=== PATIENT | female | born 1955 | race Caucasian/White ===

== ENCOUNTER 2020-03-02 15:38 | Inpatient (IN) ==
[2020-03-02] MEDS ORDERED: ALBUTEROL/IPRATROPIUM 3 ML NEB RESP TX STA (16:10)
[2020-03-02] MEDS ORDERED: methylPREDNISolone SOD SUC 125 MG/2 ML VIAL IV STA (16:11)
[2020-03-02] MEDS ORDERED: FUROSEMIDE 40 MG/4 ML VIAL IV STA (16:23)
[2020-03-02] MEDS ORDERED: ALBUTEROL 2.5 MG/3 ML NEB RESP TX PRN (16:34)
[2020-03-02] MEDS ORDERED: carvediloL 3.125 MG TABLET PO STA (17:04)
[2020-03-02] MEDS ORDERED: SIMETHICONE CHEW 125 MG TABLET PO PRN (17:11)
[2020-03-02] MEDS ORDERED: ZALEPLON 5 MG CAPSULE PO PRN (17:11)
[2020-03-02] MEDS ORDERED: guaiFENesin/DM ER 600-30 MG TABLET PO PRN (17:11)
[2020-03-02] MEDS ORDERED: LACTULOSE 20 GM/30 ML UDCUP PO PRN (17:11)
[2020-03-02] MEDS ORDERED: ALUMINUM/MAGNES/SIMETH MAX STR 30 ML UDCUP PO PRN (17:11)
[2020-03-02] MEDS ORDERED: ACETAMINOPHEN 325 MG TABLET PO PRN (17:11)
[2020-03-02] MEDS ORDERED: GLUCAGON 1 MG VIAL IM PRN (17:11)
[2020-03-02] MEDS ORDERED: ONDANSETRON 4 MG/2 ML VIAL IV PRN (17:11)
[2020-03-02] MEDS ORDERED: CALCIUM CARBONATE CHEW 500 MG TABLET PO PRN (17:11)
[2020-03-02] MEDS ORDERED: MORPHINE 4 MG/1 ML VIAL IV PRN (17:11)
[2020-03-02] MEDS ORDERED: BISACODYL 5 MG TABLET PO PRN (17:11)
[2020-03-02] MEDS ORDERED: hydrALAZINE 20 MG/1 ML VIAL IV PRN (17:11)
[2020-03-02] MEDS ORDERED: DEXTROSE 50% 25 GM/50 ML VIAL IV PRN (17:11)
[2020-03-02] MEDS ORDERED: DOCUSATE SODIUM 100 MG CAPSULE PO PRN (17:11)
[2020-03-02 17:26] LABS: Albumin 2.8 G/DL (3.4-5.0); Bilirubin,Total 0.4 MG/DL (0.2-1.0); Calcium 8.6 MG/DL (8.5-10.1); Osmolality,Calculated 278.8 MOS/KG (273-304); Total Protein 6.7 G/DL (6.4-8.3)
[2020-03-02] MEDS ORDERED: FUROSEMIDE 40 MG/4 ML VIAL IV ONE (17:49)
[2020-03-02] MEDS: methylPREDNISolone SOD SUC 40 MG/1 ML VIAL IV SCH (17:59)
[2020-03-02] MEDS: AZITHROMYCIN INJ 500 MG in SODIUM CHLORIDE 0.9% 250 ML IV SCH (18:13)
[2020-03-02 19:16] LABS: Hematocrit 41.2 VOL% (35.7-47.0); Hemoglobin 13.3 GM/DL (12.0-16.0); Immature Granulocytes % 0.6 %; Immature Granulocytes Absolute 0.03 #; Lymphocytes # 0.4 10*3/uL (1.4-4.0); Lymphocytes % 6.9 % (21.3-54.2); Mean Corpuscular HGB Conc 32.3 GM/DL (32-36); Mean Corpuscular Volume 97.6 FL (87-102); Mean Platelet Volume 9.5 FL (9.6-12.0); Monocytes % 4.8 % (1.7-12.7); Neutrophils % 87.7 % (38.7-73.9); Platelet Count 232 T/CUMM (130-400); Red Blood Count 4.22 MC/CUMM (3.8-5.5); Red Cell Distribution Width 13.7 % (9.3-17.3); White Blood Count 5.1 T/CUMM (4-12)
[2020-03-02] MEDS: ALBUTEROL/IPRATROPIUM 3 ML NEB RESP TX SCH (20:23)
[2020-03-02] MEDS: SERTRALINE 100 MG TABLET PO SCH (21:36)
[2020-03-02] MEDS: GABAPENTIN 300 MG CAPSULE PO SCH (21:36)
[2020-03-02] MEDS: FLUTICASONE/SALMETEROL 250-50 DISKUS 14 DOSE INH SCH (21:36)
[2020-03-02] MEDS: carvediloL 3.125 MG TABLET PO SCH (21:36)
[2020-03-03] MEDS: methylPREDNISolone SOD SUC 40 MG/1 ML VIAL IV SCH ×3 (01:45→17:47)
[2020-03-03] MEDS: ALBUTEROL/IPRATROPIUM 3 ML NEB RESP TX SCH ×5 (02:36→18:50)
[2020-03-03] MEDS: LEVOTHYROXINE 50 MCG TABLET PO SCH (06:22)
[2020-03-03 06:28] LABS: Hematocrit 37.1 VOL% (35.7-47.0); Hemoglobin 11.9 GM/DL (12.0-16.0); Immature Granulocytes % 0.4 %; Immature Granulocytes Absolute 0.02 #; Lymphocytes # 1.7 10*3/uL (1.4-4.0); Lymphocytes % 33.7 % (21.3-54.2); Mean Corpuscular HGB Conc 32.1 GM/DL (32-36); Mean Corpuscular Volume 98.1 FL (87-102); Mean Platelet Volume 9.3 FL (9.6-12.0); Neutrophils % 53.9 % (38.7-73.9); Platelet Count 248 T/CUMM (130-400); Red Blood Count 3.78 MC/CUMM (3.8-5.5); Red Cell Distribution Width 13.5 % (9.3-17.3)
[2020-03-03 06:49] LABS: Albumin 2.6 G/DL (3.4-5.0); Bilirubin,Total 0.7 MG/DL (0.2-1.0); Calcium 8.6 MG/DL (8.5-10.1); Osmolality,Calculated 279.8 MOS/KG (273-304); Total Protein 6.2 G/DL (6.4-8.3)
[2020-03-03 06:55] LABS: Risk Ratio 3.5; Thyroid Stimulating Hormone 0.806 uIU/ml (0.358-3.74); VLDL CHOLESTEROL 25.8 MG/DL
[2020-03-03] MEDS: THIAMINE 100 MG TABLET PO SCH (08:39)
[2020-03-03] MEDS: GABAPENTIN 300 MG CAPSULE PO SCH ×2 (08:39→21:46)
[2020-03-03] MEDS: carvediloL 3.125 MG TABLET PO SCH ×2 (08:39→21:46)
[2020-03-03] MEDS: PANTOPRAZOLE 40 MG TABLET PO SCH (08:39)
[2020-03-03] MEDS: NICOTINE 21 MG/24 HR PATCH TRANSDERM SCH (08:40)
[2020-03-03] MEDS: CALCIUM (CARBONATE) 600 MG TABLET PO SCH (08:40)
[2020-03-03] MEDS: FLUTICASONE/SALMETEROL 250-50 DISKUS 14 DOSE INH SCH (08:40)
[2020-03-03] MEDS: DIVALPROEX ER 500 MG TABLET PO SCH (08:40)
[2020-03-03] MEDS: LIDOCAINE 5% PATCH TRANSDERM SCH (14:30)
[2020-03-03] MEDS: AZITHROMYCIN INJ 500 MG in SODIUM CHLORIDE 0.9% 250 ML IV SCH (17:50)
[2020-03-03] MEDS: BUDESONIDE 0.5 MG/2 ML NEB RESP TX SCH (18:50)
[2020-03-03] MEDS: SERTRALINE 100 MG TABLET PO SCH (21:46)
[2020-03-04] MEDS: methylPREDNISolone SOD SUC 40 MG/1 ML VIAL IV SCH ×3 (02:16→17:55)
[2020-03-04] MEDS: ALBUTEROL/IPRATROPIUM 3 ML NEB RESP TX SCH ×7 (02:30→23:15)
[2020-03-04 05:52] LABS: ABG Base Excess 15.9 MMOL/L (-2.5-2.5); ABG HCO3 39.7 MMOL/L (20-26); ABG Oxygen Saturation 87.9 % (95-100); ABG PCO2 68.2 MM HG (35-48); ABG PH 7.418 (7.35-7.45); ABG TCO2 39.5 MMOL/L (23-27)
[2020-03-04 05:55] LABS: Immature Granulocytes % 0.2 %; Immature Granulocytes Absolute 0.01 #; Lymphocytes # 1.7 10*3/uL (1.4-4.0); Lymphocytes % 38.3 % (21.3-54.2); Mean Corpuscular HGB Conc 32.4 GM/DL (32-36); Mean Corpuscular Volume 97.1 FL (87-102); Mean Platelet Volume 9.4 FL (9.6-12.0); Neutrophils % 50.5 % (38.7-73.9); Platelet Count 239 T/CUMM (130-400); Red Blood Count 3.81 MC/CUMM (3.8-5.5); Red Cell Distribution Width 13.2 % (9.3-17.3); White Blood Count 4.5 T/CUMM (4-12)
[2020-03-04] MEDS: LEVOTHYROXINE 50 MCG TABLET PO SCH (05:58)
[2020-03-04 06:36] LABS: Albumin 2.5 G/DL (3.4-5.0); Bilirubin,Total 0.8 MG/DL (0.2-1.0); Calcium 8.8 MG/DL (8.5-10.1); Osmolality,Calculated 277.1 MOS/KG (273-304); Total Protein 6.1 G/DL (6.4-8.3)
[2020-03-04] MEDS: BUDESONIDE 0.5 MG/2 ML NEB RESP TX SCH ×3 (07:40→19:25)
[2020-03-04] MEDS: AZITHROMYCIN 250 MG TABLET PO SCH (08:42)
[2020-03-04] MEDS: THIAMINE 100 MG TABLET PO SCH (08:42)
[2020-03-04] MEDS: GABAPENTIN 300 MG CAPSULE PO SCH ×2 (08:42→21:27)
[2020-03-04] MEDS: DIVALPROEX ER 500 MG TABLET PO SCH (08:42)
[2020-03-04] MEDS: carvediloL 3.125 MG TABLET PO SCH (08:42)
[2020-03-04] MEDS: CALCIUM (CARBONATE) 600 MG TABLET PO SCH (08:42)
[2020-03-04] MEDS: LIDOCAINE 5% PATCH TRANSDERM SCH (08:43)
[2020-03-04] MEDS: NICOTINE 21 MG/24 HR PATCH TRANSDERM SCH (08:43)
[2020-03-04] MEDS: PANTOPRAZOLE 40 MG TABLET PO SCH (08:43)
[2020-03-04] MEDS: ASPIRIN EC 81 MG TABLET PO SCH (11:59)
[2020-03-04] MEDS: BISOPROLOL 5 MG TABLET PO SCH (11:59)
[2020-03-04 18:36] LABS: Bilirubin,Urine Negative (Negative); Blood, Urine Negative (Negative); Glucose,Urine (UA) Negative (Negative); Ketones,Urine Negative (Negative); Mucus,Urine Occasional /LPF (Occasional); Nitrite,Urine Negative (Negative); Protein,Urine Negative; Urine Appearance Slightly Hazy (Clear); Urine Color Yellow (Yellow); Urine Specific Gravity 1.021 (1.001-1.035); Urine Urobilinogen < 2.0 EU/DL (0.2-1.0); WBC,Urine 1 /HPF (0-6)
[2020-03-04] MEDS: SERTRALINE 100 MG TABLET PO SCH (21:27)
[2020-03-05] MEDS: methylPREDNISolone SOD SUC 40 MG/1 ML VIAL IV SCH ×3 (00:19→17:38)
[2020-03-05] MEDS: ALBUTEROL/IPRATROPIUM 3 ML NEB RESP TX SCH ×6 (02:56→23:10)
[2020-03-05 04:47] LABS: Hematocrit 33.7 VOL% (35.7-47.0); Hemoglobin 11.2 GM/DL (12.0-16.0); Immature Granulocytes % 0.3 %; Immature Granulocytes Absolute 0.01 #; Lymphocytes # 0.6 10*3/uL (1.4-4.0); Lymphocytes % 19.2 % (21.3-54.2); Mean Corpuscular HGB Conc 33.2 GM/DL (32-36); Mean Corpuscular Volume 95.2 FL (87-102); Mean Platelet Volume 9.6 FL (9.6-12.0); Monocytes % 5.2 % (1.7-12.7); Neutrophils % 75.3 % (38.7-73.9); Platelet Count 205 T/CUMM (130-400); Red Blood Count 3.54 MC/CUMM (3.8-5.5); Red Cell Distribution Width 13.1 % (9.3-17.3); White Blood Count 3.1 T/CUMM (4-12)
[2020-03-05 05:27] LABS: Albumin 2.3 G/DL (3.4-5.0); Bilirubin,Total 0.5 MG/DL (0.2-1.0); Calcium 8.4 MG/DL (8.5-10.1); Osmolality,Calculated 277.2 MOS/KG (273-304); Total Protein 5.5 G/DL (6.4-8.3)
[2020-03-05] MEDS: LEVOTHYROXINE 50 MCG TABLET PO SCH (05:56)
[2020-03-05] MEDS: BUDESONIDE 0.5 MG/2 ML NEB RESP TX SCH ×2 (07:14→19:55)
[2020-03-05] MEDS: AZITHROMYCIN 250 MG TABLET PO SCH (09:39)
[2020-03-05] MEDS: BISOPROLOL 5 MG TABLET PO SCH (09:39)
[2020-03-05] MEDS: ASPIRIN EC 81 MG TABLET PO SCH (09:39)
[2020-03-05] MEDS: CALCIUM (CARBONATE) 600 MG TABLET PO SCH (09:39)
[2020-03-05] MEDS: GABAPENTIN 300 MG CAPSULE PO SCH ×2 (09:39→20:45)
[2020-03-05] MEDS: PANTOPRAZOLE 40 MG TABLET PO SCH (09:39)
[2020-03-05] MEDS: THIAMINE 100 MG TABLET PO SCH (09:39)
[2020-03-05] MEDS: DIVALPROEX ER 500 MG TABLET PO SCH (09:40)
[2020-03-05] MEDS: NICOTINE 21 MG/24 HR PATCH TRANSDERM SCH (09:40)
[2020-03-05] MEDS: LIDOCAINE 5% PATCH TRANSDERM SCH (09:40)
[2020-03-05] MEDS: SERTRALINE 100 MG TABLET PO SCH (20:45)
[2020-03-06] MEDS: methylPREDNISolone SOD SUC 40 MG/1 ML VIAL IV SCH ×3 (02:05→16:55)
[2020-03-06] MEDS: ALBUTEROL/IPRATROPIUM 3 ML NEB RESP TX SCH ×5 (03:25→20:15)
[2020-03-06 05:52] LABS: Immature Granulocytes % 0.6 %; Immature Granulocytes Absolute 0.02 #; Lymphocytes # 0.5 10*3/uL (1.4-4.0); Lymphocytes % 16.7 % (21.3-54.2); Mean Corpuscular HGB Conc 33.3 GM/DL (32-36); Mean Corpuscular Volume 95.2 FL (87-102); Mean Platelet Volume 9.8 FL (9.6-12.0); Monocytes % 6.7 % (1.7-12.7); Platelet Count 233 T/CUMM (130-400); Red Blood Count 3.78 MC/CUMM (3.8-5.5); Red Cell Distribution Width 13.4 % (9.3-17.3); White Blood Count 3.1 T/CUMM (4-12)
[2020-03-06] MEDS: LEVOTHYROXINE 50 MCG TABLET PO SCH (05:58)
[2020-03-06 06:49] LABS: Albumin 2.6 G/DL (3.4-5.0); Bilirubin,Total 0.8 MG/DL (0.2-1.0); Calcium 8.8 MG/DL (8.5-10.1); Osmolality,Calculated 274.2 MOS/KG (273-304)
[2020-03-06] MEDS: BUDESONIDE 0.5 MG/2 ML NEB RESP TX SCH ×2 (06:55→20:15)
[2020-03-06] MEDS ORDERED: TUBERCULIN SKIN TEST 0.1 ML SYRINGE INTRADERM ONE (09:39)
[2020-03-06] MEDS: AZITHROMYCIN 250 MG TABLET PO SCH (09:59)
[2020-03-06] MEDS: DIVALPROEX ER 500 MG TABLET PO SCH (09:59)
[2020-03-06] MEDS: THIAMINE 100 MG TABLET PO SCH (10:00)
[2020-03-06] MEDS: GABAPENTIN 300 MG CAPSULE PO SCH ×2 (10:00→21:00)
[2020-03-06] MEDS: BISOPROLOL 5 MG TABLET PO SCH (10:00)
[2020-03-06] MEDS: CALCIUM (CARBONATE) 600 MG TABLET PO SCH (10:00)
[2020-03-06] MEDS: ASPIRIN EC 81 MG TABLET PO SCH (10:00)
[2020-03-06] MEDS: PANTOPRAZOLE 40 MG TABLET PO SCH (10:00)
[2020-03-06] MEDS: NICOTINE 21 MG/24 HR PATCH TRANSDERM SCH (10:03)
[2020-03-06] MEDS: LIDOCAINE 5% PATCH TRANSDERM SCH (10:06)
[2020-03-06 10:13] LABS: ABG Base Excess 14.1 MMOL/L (-2.5-2.5); ABG HCO3 37.9 MMOL/L (20-26); ABG Oxygen Saturation 94.8 % (95-100); ABG PCO2 58.3 MM HG (35-48); ABG PH 7.455 (7.35-7.45); ABG PO2 73.3 MM HG (80-95)
[2020-03-06] MEDS: SERTRALINE 100 MG TABLET PO SCH (21:00)
[2020-03-06] MEDS: traZODone 50 MG TABLET PO PRN (21:00)
[2020-03-07] MEDS: ALBUTEROL/IPRATROPIUM 3 ML NEB RESP TX SCH ×6 (00:50→19:15)
[2020-03-07] MEDS: methylPREDNISolone SOD SUC 40 MG/1 ML VIAL IV SCH ×3 (02:46→21:20)
[2020-03-07 06:10] LABS: Eosinophils % 0.3 % (0.00-10.9); Hematocrit 35.8 VOL% (35.7-47.0); Hemoglobin 11.9 GM/DL (12.0-16.0); Immature Granulocytes % 0.7 %; Immature Granulocytes Absolute 0.02 #; Lymphocytes # 0.6 10*3/uL (1.4-4.0); Lymphocytes % 20.4 % (21.3-54.2); Mean Corpuscular HGB Conc 33.2 GM/DL (32-36); Mean Corpuscular Volume 96.2 FL (87-102); Mean Platelet Volume 9.4 FL (9.6-12.0); Monocytes % 7.2 % (1.7-12.7); Neutrophils % 71.4 % (38.7-73.9); Platelet Count 208 T/CUMM (130-400); Red Blood Count 3.72 MC/CUMM (3.8-5.5); Red Cell Distribution Width 13.6 % (9.3-17.3)
[2020-03-07] MEDS: LEVOTHYROXINE 50 MCG TABLET PO SCH (06:14)
[2020-03-07 07:00] LABS: Albumin 2.5 G/DL (3.4-5.0); Bilirubin,Total 1.1 MG/DL (0.2-1.0); Calcium 8.6 MG/DL (8.5-10.1); Osmolality,Calculated 276.8 MOS/KG (273-304); Total Protein 5.8 G/DL (6.4-8.3)
[2020-03-07] MEDS: BUDESONIDE 0.5 MG/2 ML NEB RESP TX SCH ×2 (07:19→19:15)
[2020-03-07] MEDS: LIDOCAINE 5% PATCH TRANSDERM SCH (09:42)
[2020-03-07] MEDS: NICOTINE 21 MG/24 HR PATCH TRANSDERM SCH (09:44)
[2020-03-07] MEDS: GABAPENTIN 300 MG CAPSULE PO SCH ×2 (09:45→21:21)
[2020-03-07] MEDS: CALCIUM (CARBONATE) 600 MG TABLET PO SCH (09:45)
[2020-03-07] MEDS: BISOPROLOL 5 MG TABLET PO SCH (09:45)
[2020-03-07] MEDS: THIAMINE 100 MG TABLET PO SCH (09:45)
[2020-03-07] MEDS: PANTOPRAZOLE 40 MG TABLET PO SCH (09:45)
[2020-03-07] MEDS: ASPIRIN EC 81 MG TABLET PO SCH (09:45)
[2020-03-07] MEDS: DIVALPROEX ER 500 MG TABLET PO SCH (09:45)
[2020-03-07] MEDS: traZODone 50 MG TABLET PO PRN (21:21)
[2020-03-07] MEDS: SERTRALINE 100 MG TABLET PO SCH (21:21)
[2020-03-08] MEDS: diphenhydrAMINE CAP 25 MG CAPSULE PO PRN (00:50)
[2020-03-08] MEDS: ALBUTEROL/IPRATROPIUM 3 ML NEB RESP TX SCH ×6 (01:02→18:36)
[2020-03-08] MEDS: LEVOTHYROXINE 50 MCG TABLET PO SCH (06:21)
[2020-03-08] MEDS: BUDESONIDE 0.5 MG/2 ML NEB RESP TX SCH ×2 (07:29→18:36)
[2020-03-08] MEDS: methylPREDNISolone SOD SUC 40 MG/1 ML VIAL IV SCH ×2 (10:21→21:00)
[2020-03-08] MEDS: BISOPROLOL 5 MG TABLET PO SCH (10:21)
[2020-03-08] MEDS: GABAPENTIN 300 MG CAPSULE PO SCH ×2 (10:22→21:00)
[2020-03-08] MEDS: PANTOPRAZOLE 40 MG TABLET PO SCH (10:22)
[2020-03-08] MEDS: THIAMINE 100 MG TABLET PO SCH (10:22)
[2020-03-08] MEDS: NICOTINE 21 MG/24 HR PATCH TRANSDERM SCH (10:22)
[2020-03-08] MEDS: ASPIRIN EC 81 MG TABLET PO SCH (10:22)
[2020-03-08] MEDS: LIDOCAINE 5% PATCH TRANSDERM SCH (10:23)
[2020-03-08] MEDS: CALCIUM (CARBONATE) 600 MG TABLET PO SCH (10:27)
[2020-03-08] MEDS: DIVALPROEX ER 500 MG TABLET PO SCH (10:27)
[2020-03-08] MEDS: traZODone 50 MG TABLET PO PRN (21:00)
[2020-03-08] MEDS: SERTRALINE 100 MG TABLET PO SCH (21:00)
[2020-03-09] MEDS: ALBUTEROL/IPRATROPIUM 3 ML NEB RESP TX SCH ×7 (00:23→23:40)
[2020-03-09] MEDS: LEVOTHYROXINE 50 MCG TABLET PO SCH (05:46)
[2020-03-09 06:23] LABS: Eosinophils # 0.1 10*3/uL (0.0-0.87); Eosinophils % 2.3 % (0.00-10.9); Hematocrit 38.1 VOL% (35.7-47.0); Hemoglobin 12.4 GM/DL (12.0-16.0); Immature Granulocytes % 0.2 %; Immature Granulocytes Absolute 0.01 #; Lymphocytes # 1.5 10*3/uL (1.4-4.0); Lymphocytes % 32.6 % (21.3-54.2); Mean Corpuscular HGB Conc 32.5 GM/DL (32-36); Mean Corpuscular Volume 98.7 FL (87-102); Mean Platelet Volume 10.3 FL (9.6-12.0); Monocytes % 10.4 % (1.7-12.7); Neutrophils % 54.5 % (38.7-73.9); Platelet Count 193 T/CUMM (130-400); Red Blood Count 3.86 MC/CUMM (3.8-5.5); Red Cell Distribution Width 14.1 % (9.3-17.3); White Blood Count 4.7 T/CUMM (4-12)
[2020-03-09 06:50] LABS: Calcium 8.9 MG/DL (8.5-10.1); Osmolality,Calculated 277.7 MOS/KG (273-304)
[2020-03-09] MEDS: BUDESONIDE 0.5 MG/2 ML NEB RESP TX SCH ×2 (07:27→19:10)
[2020-03-09] MEDS: ASPIRIN EC 81 MG TABLET PO SCH (10:01)
[2020-03-09] MEDS: PANTOPRAZOLE 40 MG TABLET PO SCH (10:01)
[2020-03-09] MEDS: BISOPROLOL 5 MG TABLET PO SCH (10:01)
[2020-03-09] MEDS: NICOTINE 21 MG/24 HR PATCH TRANSDERM SCH (10:01)
[2020-03-09] MEDS: THIAMINE 100 MG TABLET PO SCH (10:01)
[2020-03-09] MEDS: GABAPENTIN 300 MG CAPSULE PO SCH ×2 (10:01→21:02)
[2020-03-09] MEDS: DIVALPROEX ER 500 MG TABLET PO SCH (10:01)
[2020-03-09] MEDS: CALCIUM (CARBONATE) 600 MG TABLET PO SCH (10:01)
[2020-03-09] MEDS: methylPREDNISolone SOD SUC 40 MG/1 ML VIAL IV SCH ×2 (10:02→21:03)
[2020-03-09] MEDS: LIDOCAINE 5% PATCH TRANSDERM SCH (10:07)
[2020-03-09] MEDS: diphenhydrAMINE CAP 25 MG CAPSULE PO PRN (21:02)
[2020-03-09] MEDS: SERTRALINE 100 MG TABLET PO SCH (21:02)
[2020-03-10] MEDS: ALBUTEROL/IPRATROPIUM 3 ML NEB RESP TX SCH ×5 (03:10→19:59)
[2020-03-10] MEDS: BUDESONIDE 0.5 MG/2 ML NEB RESP TX SCH ×2 (07:30→19:59)
[2020-03-10] MEDS: NICOTINE 21 MG/24 HR PATCH TRANSDERM SCH (09:40)
[2020-03-10] MEDS: GABAPENTIN 300 MG CAPSULE PO SCH ×2 (09:40→20:25)
[2020-03-10] MEDS: THIAMINE 100 MG TABLET PO SCH (09:40)
[2020-03-10] MEDS: DIVALPROEX ER 500 MG TABLET PO SCH (09:40)
[2020-03-10] MEDS: PANTOPRAZOLE 40 MG TABLET PO SCH (09:40)
[2020-03-10] MEDS: BISOPROLOL 5 MG TABLET PO SCH (09:40)
[2020-03-10] MEDS: CALCIUM (CARBONATE) 600 MG TABLET PO SCH (09:40)
[2020-03-10] MEDS: ASPIRIN EC 81 MG TABLET PO SCH (09:40)
[2020-03-10] MEDS: methylPREDNISolone SOD SUC 40 MG/1 ML VIAL IV SCH ×2 (09:40→20:25)
[2020-03-10] MEDS: LEVOTHYROXINE 50 MCG TABLET PO SCH (09:52)
[2020-03-10] MEDS: LIDOCAINE 5% PATCH TRANSDERM SCH (09:52)
[2020-03-10] MEDS: diphenhydrAMINE CAP 25 MG CAPSULE PO PRN (20:25)
[2020-03-10] MEDS: SERTRALINE 100 MG TABLET PO SCH (20:25)
[2020-03-11] MEDS: ALBUTEROL/IPRATROPIUM 3 ML NEB RESP TX SCH ×4 (00:34→11:25)
[2020-03-11] MEDS: LEVOTHYROXINE 50 MCG TABLET PO SCH (06:36)
[2020-03-11 06:43] LABS: Calcium 8.6 MG/DL (8.5-10.1); Osmolality,Calculated 278.4 MOS/KG (273-304)
[2020-03-11] MEDS: BUDESONIDE 0.5 MG/2 ML NEB RESP TX SCH (08:13)
[2020-03-11] MEDS: THIAMINE 100 MG TABLET PO SCH (09:07)
[2020-03-11] MEDS: CALCIUM (CARBONATE) 600 MG TABLET PO SCH (09:07)
[2020-03-11] MEDS: ASPIRIN EC 81 MG TABLET PO SCH (09:07)
[2020-03-11] MEDS: DIVALPROEX ER 500 MG TABLET PO SCH (09:07)
[2020-03-11] MEDS: GABAPENTIN 300 MG CAPSULE PO SCH (09:07)
[2020-03-11] MEDS: NICOTINE 21 MG/24 HR PATCH TRANSDERM SCH (09:07)
[2020-03-11] MEDS: PANTOPRAZOLE 40 MG TABLET PO SCH (09:07)
[2020-03-11] MEDS: LIDOCAINE 5% PATCH TRANSDERM SCH (09:08)
[2020-03-11] MEDS: methylPREDNISolone SOD SUC 40 MG/1 ML VIAL IV SCH (09:08)
[2020-03-11] MEDS: BISOPROLOL 5 MG TABLET PO SCH (09:08)
[2020-03-11 12:25] VITALS: BP 122/58
== END 2020-03-11 13:20 | DRG 189 ==
LOC: N.ED 15:38 → N.EDINP 15:38 → SUATTDRO 16:23 → N.TELEN 16:54 → SUATTDRO 03-04 14:58
PROVIDERS: ADMIT Internal Medicine; ATTEND Internal Medicine